=== PATIENT | female | born 1985 | race Caucasian/White ===

== ENCOUNTER → 2019-01-25 07:53 | Outpatient (CLI) | payer MEDICAID, SELFPAY ==
[2019-01-29 12:19] LABS: HCV Genotype Charge YES; Hepatitis C Genotype 1a (.)
== END ==
PROVIDERS: Visit Provider Nurse Practitioner Family
DX: B18.2 Chronic viral hepatitis C (principal)
CPT/HCPCS: 36415; 87522; 87902

== ENCOUNTER 2019-03-15 18:50 | Emergency (ER) | payer MEDICAID, SELFPAY ==
[2019-03-15 18:59] VITALS: BP 124/74; PULSE 108; RESP 18; TEMP 36.8; O2SAT 98; BMI 15.3
[2019-03-15 19:02] VITALS: BP 124/74; PULSE 108; RESP 18; TEMP 36.8; O2SAT 98; BMI 15.3
--- NOTE | 2019-03-15 19:07 | HMH.EDUTC ---
[facility] [place] Clinical Impression: Abscess and cellulitis of gluteal region, Hidradenitis suppurativa Disposition: Home, Self-Care Condition on Discharge: Good Instructions: Cellulitis Additional Instructions: Keep the wounds clean and dry. Follow up with your regular doctor. Take the antibiotics as directed. Use the topical antibiotic ointment (mupirocin) on the wounds as directed. Take tylenol or ibuprofen for pain. GO TO THE ER FOR ANY WORSENING SYMPTOMS, SUCH FEVER, CHILLS, WORSENING SWELLING, ETC Prescriptions: Sulfamethoxazole/Trimethoprim [Bactrim DS tablet] 1 each PO BID 10 Days #20 tab Mupirocin [Bactroban 2% Ointment 22gm tube] 1 applicatio TP TID 7 Days #1 tube cephALEXin [Keflex 500mg Cap] 500 mg PO Q6H 10 Days #40 cap Referrals: Lexie Trent MD [Primary Care Provider] - Time of Disposition: 19:14 Medical Decision Making - Medical Records Medical records reviewed: Yes: I reviewed the patient's medical records. - Andre Inquiry Pt receiving controlled substance: No Andre was queried for this patient: No Vital Signs: 03/15/19 18:59 03/15/19 19:02 03/15/19 19:15 Temperature 98.3 F 98.3 F 98.3 F Temperature Source Oral Oral Oral Pulse Rate 108 H Pulse Rate [Right] 108 H 108 H Respiratory Rate 18 18 18 Blood Pressure 124/74 Blood Pressure [Left Arm] 124/74 124/74 Blood Pressure Mean [Left Arm] 90 90 Blood Pressure Source Automatic Cuff Blood Pressure Source [Left Arm] Automatic Cuff Automatic Cuff Blood Pressure Position Sitting Blood Pressure Position [Left Arm] Sitting Sitting 02 Sat by Pulse Oximetry 98 98 Oxygen Delivery Method Room Air Room Air Room Air [facility] [place] - General Stated complaint: Has 6 Boils Time Seen by Provider: 03/15/19 19:07 Mode of Arrival: Family Vehicle Source of Information: Patient Limitations: No Limitations Description of Symptoms (Recalled from Triage Doc. by RN): Pt has cystes under left arm and on left buttocks, for several days HEENT Symptoms (Recalled from RN notes): No Resp Symptoms (Recalled from RN notes): No Skin Symptoms (Recalled from RN notes): Yes MS Symptoms (Recalled from RN notes): No Functional Status (Recalled from RN notes): N/A - History of Present Illness Provider Complaint: She has a history of hidradenitis suppurativa. For the past 3 days she has had 6 boils. 2 are on the right buttock, 1 on right axilla, 3 on upper back. She denies any fever or chills. - Related Data Home Medications Medication Instructions Recorded Confirmed Escitalopram Oxalate 5 mg PO DAILY 03/15/19 03/15/19 Previous Rx's Medication Instructions Recorded Mupirocin [Bactroban 2% Ointment 1 applicatio TP TID 7 Days #1 tube 03/15/19 22gm tube] Sulfamethoxazole/Trimethoprim 1 each PO BID 10 Days #20 tab 03/15/19 [Bactrim DS tablet] cephALEXin [Keflex 500mg Cap] 500 mg PO Q6H 10 Days #40 cap 03/15/19 Allergies Allergy/AdvReac Type Severity Reaction Status Date / Time No Known Allergies Allergy Verified 03/15/19 19:06 - Worker's Comp Is this a Worker's Comp case?: No [facility] History - Hepatitis A Screen Drug use history?: No High risk sexual behaviors?: No History of sexually transmitted infection?: No Currently employed?: No Childcare worker?: No Do you have indoor plumbing?: Yes Do you have electricity?: Yes Attestation statement:: This patient has been screened for Hepatitis A risk factors. I have reviewed the patient's past medical history: Yes Medical History: Denies:: Diabetes Mellitus Type 1, Diabetes Mellitus Type 2 - Social History Smoking Status: Current every day smoker Tobacco Type: cigarettes # Packs/Day (cigarettes): 1 Alcohol Intake: never Occupational Status: other - Psychiatric History Expresses thoughts of harming self/others: None Suicide Plan Description: No Plan ROS Obtained: Yes All systems reviewed & no additional complaints - Constitutional Const
--- NOTE | 2019-03-15 19:11 | ED_ITS ---
[facility] – [place] Disposition Clinical Impression: Abscess and cellulitis of gluteal region, Hidradenitis suppurativa Disposition: Home, Self-Care Condition on Discharge: Good Instructions: Cellulitis Additional Instructions: Keep the wounds clean and dry. Follow up with your regular doctor. Take the antibiotics as directed. Use the topical antibiotic ointment (mupirocin) on the wounds as directed. Take tylenol or ibuprofen for pain. GO TO THE ER FOR ANY WORSENING SYMPTOMS, SUCH FEVER, CHILLS, WORSENING SWELLING, ETC Prescriptions: Sulfamethoxazole/Trimethoprim [Bactrim DS tablet] 1 each PO BID 10 Days #20 tab Mupirocin [Bactroban 2% Ointment 22gm tube] 1 applicatio TP TID 7 Days #1 tube cephALEXin [Keflex 500mg Cap] 500 mg PO Q6H 10 Days #40 cap Referrals: Lexie Trent MD [Primary Care Provider] - Time of Disposition: 19:14 Medical Decision Making - Medical Records Medical records reviewed: Yes: I reviewed the patient's medical records. - Andre Inquiry Pt receiving controlled substance: No Andre was queried for this patient: No Vital Signs: 03/15/19 18:59 03/15/19 19:02 03/15/19 19:15 Temperature 98.3 F 98.3 F 98.3 F Temperature Source Oral Oral Oral Pulse Rate 108 H Pulse Rate [Right] 108 H 108 H Respiratory Rate 18 18 18 Blood Pressure 124/74 Blood Pressure [Left Arm] 124/74 124/74 Blood Pressure Mean [Left Arm] 90 90 Blood Pressure Source Automatic Cuff Blood Pressure Source [Left Arm] Automatic Cuff Automatic Cuff Blood Pressure Position Sitting Blood Pressure Position [Left Arm] Sitting Sitting 02 Sat by Pulse Oximetry 98 98 Oxygen Delivery Method Room Air Room Air Room Air [facility] [place] HPI - General Stated complaint: Has 6 Boils Time Seen by Provider: 03/15/19 19:07 Mode of Arrival: Family Vehicle Source of Information: Patient Limitations: No Limitations Description of Symptoms (Recalled from Triage Doc. by RN): Pt has cystes under left arm and on left buttocks, for several days HEENT Symptoms (Recalled from RN notes): No Resp Symptoms (Recalled from RN notes): No Skin Symptoms (Recalled from RN notes): Yes MS Symptoms (Recalled from RN notes): No Functional Status (Recalled from RN notes): N/A - History of Present Illness Provider Complaint: She has a history of hidradenitis suppurativa. For the past 3 days she has had 6 boils. 2 are on the right buttock, 1 on right axilla, 3 on upper back. She denies any fever or chills. - Related Data Home Medications Medication Instructions Recorded Confirmed Escitalopram Oxalate 5 mg PO DAILY 03/15/19 03/15/19 Previous Rx's Medication Instructions Recorded Mupirocin [Bactroban 2% Ointment 1 applicatio TP TID 7 Days #1 tube 03/15/19 22gm tube] Sulfamethoxazole/Trimethoprim 1 each PO BID 10 Days #20 tab 03/15/19 [Bactrim DS tablet] cephALEXin [Keflex 500mg Cap] 500 mg PO Q6H 10 Days #40 cap 03/15/19 Allergies Allergy/AdvReac Type Severity Reaction Status Date / Time No Known Allergies Allergy Verified 03/15/19 19:06 - Worker's Comp Is this a Worker's Comp case?: No [facility] History - Hepatitis A Screen Drug
[2019-03-15 19:15] VITALS: BP 124/74; PULSE 108; RESP 18; TEMP 36.8; O2SAT 98
== END 2019-03-15 19:17 | disposition home or self-care (01) ==
PROVIDERS: Emergency Provider Nurse Practitioner Family; PCP Family Medicine
DX: L02.31 Cutaneous abscess of buttock (principal); L72.3 Sebaceous cyst
CPT/HCPCS: 99201